=== PATIENT | male | born 1985 | race Caucasian/White ===

== ENCOUNTER 2018-03-03 20:59 | Emergency (ER) | payer SELFPAY ==
--- NOTE | 2018-03-03 22:05 | ER Document Report ---
ED Medical Screen (RME) - General Chief Complaint: High Blood Pressure Stated Complaint: CHEST PAIN, HIGH BLOOD PRESSURE Time Seen by Provider: 03/03/18 22:02 Mode of Arrival: Ambulatory Information source: Patient Notes: Patient presents with complaint of headache and high blood pressure. Patient reports that this has been ongoing for the last 9 days. Patient reports he was seen by his primary care provider this morning and was prescribed antihypertensives as well as headache medicines although he reports that he has been unable to pick them up from the pharmacy. Patient reports that he had elevated blood pressure at home and got worried that maybe he was having a stroke due to the high blood pressure. Upon my examination patient's blood pressure is 161/106 which patient reports is much resolved from previous. Patient does report that he has a headache 1 out of 6 however patient is declining any medications for his headache. Patient is just requesting to see a physician to discuss his blood pressure. I will not medicate patient at this time as patient is unsure of what he takes for his blood pressure. Exam: Lung sounds clear to auscultation bilaterally. No neuro deficits noted. Patient alert, oriented and in no acute distress. I have greeted and performed a rapid initial assessment of this patient. A comprehensive ED assessment and evaluation of the patient, analysis of test results and completion of the medical decision making process will be conducted by additional ED providers. Dictation of this chart was performed using voice recognition software; therefore, there may be some unintended grammatical errors. TRAVEL OUTSIDE OF THE [place] IN LAST 30 DAYS: No - Related Data Allergies/Adverse Reactions: No Known Allergies Allergy (Unverified 03/03/18 21:20) Past Medical History - Social History Chew tobacco use (# tins/day): No Frequency of alcohol use: Rare Drug Abuse: None Renal/ Medical History: Denies: Hx Peritoneal Dialysis Physical Exam - Vital signs Vitals: Temp Pulse Resp BP Pulse Ox 98.2 F 65 16 172/119 H 98 03/03/18 21:34 03/03/18 21:34 03/03/18 21:34 03/03/18 21:34 03/03/18 21:34 Course - Vital Signs Vital signs: Temp Pulse Resp BP Pulse Ox 98.2 F 65 16 172/119 H 98 03/03/18 21:34 03/03/18 21:34 03/03/18 21:34 03/03/18 21:34 03/03/18 21:34
--- NOTE | 2018-03-04 00:20 | EKG REPORT ---
SEVERITY:- NORMAL ECG - SINUS RHYTHM : Confirmed by: Delisa Stafford MD 04-Mar-2018 00:19:11
[2018-03-04 01:15] VITALS: BP 161/106
== END 2018-03-04 01:00 | disposition left against medical advice (07) ==
LOC: ER 20:59
DX: R07.9 Chest pain, unspecified (principal); R51 Headache; I10 Essential (primary) hypertension
CPT/HCPCS: 93005; 93010; 99281